=== PATIENT | female | born 1950 | race Caucasian/White ===

== ENCOUNTER → 2016-09-15 | Outpatient (CLI) | payer OTHER ==
--- NOTE | 2016-09-15 15:26 | EKG ---
[address] [address] Measurements Intervals Windfall Rate: 77 P: 33 [place]: 154 QRS: 87 QRSD: 101 T: 64 QT: 367 QTc: 399 Interpretive Statements SINUS RHYTHM Compared to ECG 11/06/2014 16:10:02 No significant changes Electronically Signed On 09-15-16 18:15:01 MDT by Nishant Souza [id number]
--- NOTE | 2016-09-15 15:43 | DI ---
PA /LATERAL CHEST X-RAY, 09/15/2016 2:46 PM : Clinical History: Medical preoperative exam Previous Exam: November 18, 2015 There is no acute soft tissue or bony abnormality. Heart size is normal. Lungs are clear. Mediastinal structures are normal. There are no pulmonary nodules. IMPRESSION: Normal chest x-ray.
[2016-09-15 15:53] LABS: BASOPHILS # (AUTO) 0.07 10*3/UL; BASOPHILS % (AUTO) 0.8 % (0-1); EOSINOPHILS # (AUTO) 0.23 10*3/UL; EOSINOPHILS % (AUTO) 2.5 % (0-8); HEMATOCRIT 51.9 % (37.0-47.0); HEMOGLOBIN 16.9 g/dL (12.0-16.0); LYMPHOCYTES # (AUTO) 3.72 10*3/uL; MEAN CORPUSCULAR HEMOGLOBIN 30.2 PG (27-31); MEAN CORPUSCULAR HGB CONC 32.6 g/dL (33-37); MEAN CORPUSCULAR VOLUME 92.8 FL (81-99); MEAN PLATELET VOLUME 11.3 FL (7.4-12.2); MONOCYTES # (AUTO) 0.65 10*3/UL (0.3-0.8); NEUTROPHILS # (AUTO) 4.58 10*3/UL; NEUTROPHILS % (AUTO) 49.4 % (50-80); RED BLOOD COUNT 5.59 10^6/uL (4.20-5.40)
[2016-09-15 15:58] LABS: PLATELET MORPHOLOGY COMMENT NORMAL MORPHOLOGY (NORM); WBC MORPHOLOGY COMMENT NORMAL MORPHOLOGY (NORM)
[2016-09-15 15:59] LABS: RBC MORPHOLOGY COMMENT NORMAL MORPHOLOGY (NORM)
[2016-09-15 16:00] LABS: BILIRUBIN,URINE NEGATIVE (NEG); CLARITY,URINE CLEAR (CLEAR); COLOR,URINE YELLOW; GLUCOSE, URINE (UA) NEGATIVE (NEG); NITRATE,URINE NEGATIVE (NEG); OCCULT BLOOD,URINE NEGATIVE (NEG); PROTEIN,URINE NEGATIVE (NEG); UROBILINOGEN,URINE 0.2 mg/dL (0.2)
[2016-09-15 16:02] LABS: URINE SAMPLE TYPE CLEAN CATCH URINE
[2016-09-15 16:14] LABS: BLOOD UREA NITROGEN 17 mg/dL (7-22); BUN/CREATININE RATIO 24.28 (6-20); CALCIUM 9.4 mg/dL (8.7-10.7); EST GLOMERULAR FILTRATION > 60 (>60 ml/min/1.73m(2))
== END ==
LOC: MOB LAB 14:47
PROVIDERS: ATTEND Nurse Practitioner
DX: M51.27 Other intervertebral disc displacement, lumbosacral region (principal)
CPT/HCPCS: 36415; 71020; 80048; 81001; 85025; 85610; 87641; 93005; 93010